=== PATIENT | male | born 1960 | race Two or more races ===

== ENCOUNTER 2024-02-14 03:37 | Emergency (ER) | payer BC ==
[~2024-02-14] VITALS: Ht 157.5 cm; Wt 103.0 kg
[2024-02-14 04:16] LABS: Urine Bacteria None Seen /hpf (None Seen); Urine WBC None Seen /hpf (0 - 3)
[2024-02-14 04:38] LABS: Urine Blood 3+ /uL (Negative); Urine Clarity Ex.Turbid (Clear); Urine Color Dark-Red (Yellow); Urine Protein, UAD 2+ (Negative); Urine Specific Gravity 1.023 (1.001-1.035); Urine Urobilinogen Normal (Negative)
[2024-02-14] MEDS ORDERED: CIPR500T4 PO (05:01)
--- NOTE | 2024-02-14 05:01 | ED.PDOC ---
General HPI Comments THIS IS A 63-YEAR-OLD MALE PRESENTS TO THE ED CHIEF COMPLAINT PAINFUL URINATION. PATIENT STATES HE WAS SEEN PROXIMALLY 2 WEEKS AGO AT AN URGENT CARE AND WAS PRESCRIBED LEVAQUIN FOR THE SAME SYMPTOMS. HE STATES WAS ON THE MEDICATION FOR 5-7 DAYS HE NOTES IMPROVEMENT BUT ONCE THE MEDICATION STOPPED 5 DAYS LATER THE SYMPTOMS DEVELOPED AGAIN. PATIENT ALSO STATES HE HAS A APPOINTMENT SCHEDULED February WITH HIS PCP. DENIES FEVERS, CHILLS, BACK PAIN, NAUSEA, VOMITING, NO ABDOMINAL PAIN. Chief Complaint: Urinary Time Seen by MD: 04:02 Reviewed notes: Nurses Notes, Medications, Allergies Allergies: Coded Allergies: NO KNOWN ALLERGIES (Unverified , 02/14/24) Information Source: Patient Mode of Arrival: Ambulatory Past Medical History PAST MEDICAL HISTORY: Denies Surgical History: Denies all surgeries Family History Family History: Reviewed,noncontributory to illness Social History Smoker: Non-Smoker Alcohol: Denies ETOH Use Drugs: Denies Drug Use Constitutional: denies: chills, diaphoresis, fatigue, fever, malaise, sweats, weakness, others EENTM: denies: blurred vision, double vision, ear bleeding, ear discharge, ear drainage, ear pain, ear ringing, eye pain, eye redness, hearing loss, mouth pain, mouth swelling, nasal discharge, nose bleeding, nose congestion, nose pain, photophobia, tearing, throat pain, throat swelling, voice changes, others Respiratory: denies: cough, hemoptysis, orthopnea, SOB at rest, shortness of breath, SOB with excertion, stridor, wheezing, others Cardiovascular: denies: chest pain, dizzy spells, diaphoresis, Dyspnea on exertion, edema, irregular heart beat, left arm pain, lightheadedness, palpitations, PND, syncope, others Gastrointestinal: denies: abdomen distended, abdominal pain, blood streaked bowels, constipated, diarrhea, dysphagia, difficulty swallowing, hematemesis, melena, nausea, poor appetite, poor fluid intake, rectal bleeding, rectal pain, vomiting, others Genitourinary: reports: burning, dysuria, hematuria; denies: flank pain, frequency, incontinence, penile discharge, penile sore, pain, testicle pain, testicle swelling, urgency, others Neurological: denies: dizziness, fainting, headache, left sided numbness, left sided weakness, numbness, paresthesia, pre-existing deficit, right sided numbness, right sided weakness, seizure, speech problems, tingling, tremors, weakness, others Musculoskeletal: denies: back pain, gout, joint pain, joint swelling, muscle pain, muscle stiffness, neck pain, others Integumetry: denies: bruises, change in color, change in hair/nails, dryness, laceration, lesions, lumps, rash, wounds, others Allergic/Immunocompromised: denies: Difficulty Healing, Frequent Infections, Hives, Itching, others Hematologic/Lymphatic: denies: anemia, blood clots, easy bleeding, easy bruising, swollen glands, others Endocrine: denies: excessive hunger, excessive sweating, excessive thirst, excessive urination, flushing, intolerance to cold, intolerance to heat, unexplained weight gain, unexplained weight loss, others Psychiatric: denies: anxiety, bipolar disorder, depression, hopeless, panic disorder, schizophrenia, sleepless, suicidal, others Physical Exam General Appearance: No Apparent Distress, Normal HEENT: Pharynx Normal Neck: Full Range of Motion, Non-Tender Respiratory: Chest Non-Tender, Lungs Clear, No Accessory Muscle Use, No Respiratory Distress, Normal Breath Sounds Cardiovascular: No Edema, No JVD, No Murmur, No Gallop, Normal Peripheral Pulses, Regular Rate/Rhythm Breast Exam: Deferred Gastrointestinal: No Organomegaly, Non Tender, No Pulsatile Mass, Normal Bowel Sounds, Soft Genitalia: Deferred Pelvic: Deferred Rectal: Deferred Extremities: Normal capillary refill, Normal inspection, Normal range of motion, Non-tender, No pedal edema Musculoskeletal : Apperance: Normal Neurologic: Alert, bulk station agent II-XII nml as Tested, No Motor Deficits, Normal Affect, Normal Mood, No Sensory Deficits Cerebellar Function: Normal Reflexes: Normal Skin: Dry, Normal Color, Warm Lymphatic: No Adenopathy Was a procedure done? Was a procedure done?: No Differential Diagnosis Kidney stone (Female): N/A Penile/Scrotal: Prostatitis, Urolithiasis Urinary Problem (Male): UTI X-Ray, Labs, Meds, VS Vital Signs Date Time Temp Pulse Resp B/P (MAP) Pulse Ox O2 Delivery O2 Flow Rate FiO2 02/14/24 03:55 97.5 73 16 130/82 (98) 96 Lab Test 02/14/24 03:55 Range/Units Urine Color Dark-red Yellow Urine Clarity Ex.turbid Clear Urine pH 6.0 5.0-9.0 Urine Specific [place] 1.023 1.001-1.035 Urine Protein 2+ H Negative Urine Ketones Negative Negative Urine Blood 3+ H Negative /uL Urine Nitrite Negative Negative Urine Bilirubin Negative Negative Urine Urobilinogen Normal Negative mg/dL Urine Leukocyte Esterase 2+ Negative /uL Urine RBC None seen 0 - 3 /hpf Urine WBC None seen 0 - 3 /hpf Urine Squamous Epithelial Cells None seen <5 /hpf Urine Bacteria None seen None Seen /hpf Urine Glucose Normal Normal mg/dL X-Ray, Labs, Meds, VS Comment UA POSITIVE WITH BLOOD INFECTION. THIS IS LIKELY PROSTATITIS TREATMENT WAS NOT APPROPRIATE AND LONG ENOUGH. START PATIENT ON CIPRO 500 MG TWICE DAILY TIMES 14 DAYS. ADVISED TO KEEP HIS APPOINTMENT WITH HIS PCP CONSIDER REFERRAL TO UROLOGY FOR CONTINUED SYMPTOMS. HE IS TO REST INCREASE P.O. FLUIDS WITH ELECTROLYTES AVOID CAFFEINE. ER RETURN PRECAUTIONS GIVEN PATIENT INDICATED UNDERSTANDING AND AGREES WITH DISCHARGE PLAN OF CARE. Time of 1ST Reevaluation: 04:59 Reevaluation 1ST: Unchanged Patient Education/Counseling: Diagnosis, Treatment, Prognosis, Need For Follow Up Family Education/Counseling: No Family Present Departure 1 Departure Time of Disposition: 05:00 Impression: Primary Impression: Prostatitis, acute Disposition: 01 HOME / SELF CARE / HOMELESS Condition: Stable e-Prescriptions Ciprofloxacin Hcl (Ciprofloxacin Hcl) 500 Mg Tab 1 TAB PO BID for 14 Days, #28 TAB Prov: LAURENCE LYLE 02/14/24 Discharged With: Self Critical Care Note Critical Care Time?: No Stability Stability form required: LAURENCE James Feb 14, 2024 05:01
[2024-02-14 05:05] VITALS: BP 117/76; PULSE 78; RESP 16; TEMP 97.5; O2SAT 97
== END 2024-02-14 05:23 | disposition home or self-care (01) ==
LOC: ER 03:37
DX: N41.0 Acute prostatitis (principal)
CPT/HCPCS: 81001